=== PATIENT | female | born 1970 | race Caucasian/White ===

== ENCOUNTER 2018-07-01 10:33 | Emergency (ER) | payer MEDICAID ==
[~2018-07-01] VITALS: Ht 160 cm; Wt 107.3 kg
[2018-07-01 10:58] VITALS: Ht 160 cm; Wt 107.3 kg
[2018-07-01 11:38] LABS: UDS - AMPHET POSITIVE QUAL (NEGATIVE); UDS - BARB NEGATIVE QUAL (NEGATIVE); UDS - BENZO NEGATIVE QUAL (NEGATIVE); UDS - COCAINE NEGATIVE QUAL (NEGATIVE); UDS - OPIATE NEGATIVE QUAL (NEGATIVE); UDS - PCP NEGATIVE QUAL (NEGATIVE); UDS - THC NEGATIVE QUAL (NEGATIVE)
[2018-07-01 11:43] LABS: BASOPHILS 0.1 % (0-2); EOSINOPHILS 1.7 % (0-7); HEMATOCRIT 42.6 % (36.0-48.0); HEMOGLOBIN 14.4 g/dL (12-16); IMMATURE GRANULOCYTES 0.3 % (0-5); LYMPHOCYTES 23.8 % (15-50); MCH 32.4 pg (26.0-34.0); MCHC 33.8 g/dL (31.0-37.0); MCV 95.9 fL (80.0-100.0); MEAN PLATELET VOLUME 10.3 fL (7.4-10.4); MONOCYTES 5.6 % (2-11); NEUTROPHILS 68.5 % (40-80); RBC 4.44 10x6/uL (4.00-5.40); RDW 13.7 % (11.5-14.5); WBC 8.7 10x3/uL (4.8-10.8)
[2018-07-01 11:50] LABS: APPEARANCE CLEAR (CLEAR); BACTERIA FEW /hpf (NONE SEEN); BILIRUBIN NEGATIVE (NEGATIVE); COLOR STRAW (YELLOW); EPITHELIAL CELLS OCC /hpf (0-5); GLUCOSE NEGATIVE (NEGATIVE); KETONE NEGATIVE (NEGATIVE); NITRITE NEGATIVE (NEGATIVE); PROTEIN NEGATIVE (NEGATIVE); RED CELLS - URINE OCC /hpf (0-5); SPECIFIC GRAVITY 1.005 (1.005-1.020); UROBILINOGEN NORMAL (NORMAL); WHITE CELLS - URINE RARE /hpf (0-5)
[2018-07-01 11:55] LABS: PLATELET COUNT 222 10x3/uL (130-400)
[2018-07-01 12:00] LABS: ALBUMIN 3.3 g/dL (3.4-5.0); ANION GAP 11.3 mmol/L (8-16); BILIRUBIN - TOTAL 0.22 mg/dL (0.2-1.3); CALCIUM 8.7 mg/dL (8.5-10.1); CARBON DIOXIDE 29.5 mmol/L (21.0-32.0); CREATININE - SERUM 0.9 mg/dL (0.6-1.3); MAGNESIUM - SERUM 1.8 mg/dL (1.8-2.4); POTASSIUM - SERUM 3.8 mmol/L (3.5-5.1); PROTEIN - SERUM 7.9 g/dL (6.4-8.2)
[2018-07-02 00:13] VITALS: BP 154/91
== END 2018-07-02 00:14 ==
LOC: D.ER 10:33
PROVIDERS: Family Medicine
DX: R45.851 Suicidal ideations (principal); I10 Essential (primary) hypertension; Z91.14 Patient's other noncompliance with medication regimen; F19.10 Other psychoactive substance abuse, uncomplicated

== ENCOUNTER 2019-06-23 14:13 | Emergency (ER) | payer MEDICAID ==
[~2019-06-23] VITALS: Ht 160 cm; Wt 113.6 kg
[2019-06-23 14:37] VITALS: Ht 160 cm; Wt 113.6 kg
[2019-06-23] MEDS ORDERED: TAMIFLU75 MG PO (16:08)
[2019-06-23] MEDS ORDERED: LEVAQUIN750 MG PO (16:42)
[2019-06-23 17:12] VITALS: BP 179/95
== END 2019-06-23 17:13 | disposition home or self-care (01) ==
LOC: D.ER 14:13
DX: J11.00 Influenza due to unidentified influenza virus with unspecified type of pneumonia (principal); I10 Essential (primary) hypertension; Z72.0 Tobacco use

== ENCOUNTER 2019-06-25 03:38 | Inpatient (IN) | payer MEDICAID ==
[~2019-06-25] VITALS: Ht 160 cm; Wt 113.6 kg
[~2019-06-25 03:38] MED LIST: LEVAQUIN750 MG PO; TAMIFLU75 MG PO
[2019-06-25 04:31] LABS: BASOPHILS 0.1 % (0-2); EOSINOPHILS 0 % (0-7); HEMATOCRIT 45.5 % (36.0-48.0); IMMATURE GRANULOCYTES 0.4 % (0-5); LYMPHOCYTES 6.9 % (15-50); MCH 31.4 pg (26.0-34.0); MCV 95.4 fL (80.0-100.0); MEAN PLATELET VOLUME 10.4 fL (7.4-10.4); MONOCYTES 3.7 % (2-11); NEUTROPHILS 88.9 % (40-80); PLATELET COUNT 247 10x3/uL (130-400); RBC 4.77 10x6/uL (4.00-5.40); RDW 14.2 % (11.5-14.5); WBC 11.4 10x3/uL (4.8-10.8)
[2019-06-25 04:42] LABS: APTT 29.3 SECONDS (22.8-39.4); INR 0.99 (0.85-1.17)
[2019-06-25 04:45] LABS: CALC OSMOLALITY 281 mosm/kg (275-300); CALCIUM 8.8 mg/dL (8.5-10.1); CARBON DIOXIDE 24.2 mmol/L (21.0-32.0); CHLORIDE - SERUM 102 mmol/L (98-107); CREATININE - SERUM 0.9 mg/dL (0.6-1.3); POTASSIUM - SERUM 3.7 mmol/L (3.5-5.1); SODIUM 138 mmol/L (136-145); UREA NITROGEN 10 mg/dL (7-18); eGFR NON AFRICAN AMERICAN 70 mL/min (90-120)
--- NOTE | 2019-06-25 04:54 | NUR ---
PATIENT IS HERE FOR SHORTNESS OF BREATH, SHE WAS DIAGNOSED WITH PNEUMONIA YESTERDAY. SHE IS NOT SUICIDIAL AT THIS TIME. AND SHE LOVES HER KIDS VERY MUCH. 1-800 NUMBER GIVEN TO HER FOR FUTURE REFERENCE.
[2019-06-25 04:56] LABS: GLUCOSE 219 mg/dL (74-106)
[2019-06-25 05:02] LABS: ALBUMIN 3.2 g/dL (3.4-5.0); ALKALINE PHOSPHATASE 162 U/L (30-120); ALT (SGPT) 135 U/L (10-68); BILIRUBIN - TOTAL 0.21 mg/dL (0.2-1.3); CKMB 5.2 U/L (0.0-3.6); PRO BNP 158 pg/mL (0-125); PROTEIN - SERUM 8.5 g/dL (6.4-8.2); TROPONIN-I < 0.017 ng/mL (0.000-0.060)
[2019-06-25 05:05] LABS: CREATINE KINASE 1319 UL (21-215)
--- NOTE | 2019-06-25 05:17 | NUR ---
PT ASKING STAFF FOR ICE CHIPS. PT INSTRUCTED THAT SHE IS TO STAY NPO PER EDP. LEMON GLYCERIN SWABS PROVIDED. PT VOICED UNDERSTANDING OF EDUCATION.
--- NOTE | 2019-06-25 05:58 | NUR ---
PT AMBULATED INDEPENDENTLY TO RESTROOM. PT REQUESTED SOMETHING FOR PAIN. EDP LASHON NOTIFIED, NO FURTHER ORDERS GIVEN AT THIS TIME.
[2019-06-25] MEDS ORDERED: HYDROCHLOROTHIA25 MG PO (08:09)
[2019-06-25] MEDS ORDERED: XANAX2 MG PO (08:10)
[2019-06-25] MEDS ORDERED: HYDROCODON-ACE1 EA10 PO (08:11)
[2019-06-25] MEDS ORDERED: ASPIRIN81 MG PO (08:12)
[2019-06-25] MEDS ORDERED: METOPROLOL TART25 MG PO (08:12)
[2019-06-25 10:06] VITALS: BP 160/95
--- NOTE | 2019-06-25 13:24 | NUR ---
PT PLACED ON TEMPORARY DROPLET UNTIL FLU TEST RESULTS ARE BACK.
--- NOTE | 2019-06-25 13:28 | NUR ---
ASKED DR. REBOLLAR IF PT CAN HAVE SOMETHING FOR COUGH. HE STATES "I'LL ROUND ON HER SHORTLY." I VERBALIZED UNDERSTANDING.
--- NOTE | 2019-06-25 13:33 | NUR ---
URINE SPECIMEN CUP GIVEN TO PT AND INSTRUCTIONS GIVEN ON HOW TO COLLECT. ALSO STATED TO PT TO USE CALL LIGHT WHEN SHE GETS URINE COLLECTED. PT VERBALIZED UNDERSTANDING.
[2019-06-25 14:01] VITALS: BP 173/88
--- NOTE | 2019-06-25 14:16 | NUR ---
BARRIE TAYLOR ANP THAT PT IS FLU NEGATIVE AND ASKED IF TAMIFLU NEEDS TO BE DC'D. WILL AWAIT FURTHER ORDERS.
--- NOTE | 2019-06-25 14:22 | NUR ---
BRANDON ANAYA STATES TO DC TAMIFLU.
--- NOTE | 2019-06-25 17:31 | NUR ---
RN TO DO ADMISSION ASSESSMENT.
[2019-06-25 18:09] VITALS: BP 153/96
[2019-06-25 18:20] LABS: UDS - AMPHET POSITIVE QUAL (NEGATIVE); UDS - BARB NEGATIVE QUAL (NEGATIVE); UDS - BENZO NEGATIVE QUAL (NEGATIVE); UDS - COCAINE NEGATIVE QUAL (NEGATIVE); UDS - OPIATE NEGATIVE QUAL (NEGATIVE); UDS - PCP NEGATIVE QUAL (NEGATIVE); UDS - THC NEGATIVE QUAL (NEGATIVE)
[2019-06-25 18:51] LABS: BILIRUBIN NEGATIVE (NEGATIVE); GLUCOSE NEGATIVE (NEGATIVE); KETONE NEGATIVE (NEGATIVE); NITRITE NEGATIVE (NEGATIVE); UROBILINOGEN NORMAL (NORMAL)
--- NOTE | 2019-06-25 19:30 | NUR ---
RECEIVED REPORT, WILL ASSUME CARE OF PT, SLEEPING, NO DISTRESS NOTICED AT THIS TIME, BED IS LOW, SRX2, CALL LIGHT IN REACH, WILL CONTINUE PLAN OF CARE
[2019-06-25 20:00] VITALS: BP 171/99
[2019-06-26] VITALS (7 sets, daily range): BP systolic 103–171; BP diastolic 65–105; Ht 160 cm; Wt 113.6 kg
--- NOTE | 2019-06-26 05:00 | NUR ---
I have reviewed this patient and I concur with the Shift Assessment completed by the Licensed Practical Nurse today this shift.
[2019-06-26 06:32] LABS: ALBUMIN 2.8 g/dL (3.4-5.0); ANION GAP 11.3 mmol/L (8-16); BILIRUBIN - TOTAL 0.38 mg/dL (0.2-1.3); CALCIUM 9.1 mg/dL (8.5-10.1); CARBON DIOXIDE 31.1 mmol/L (21.0-32.0); CREATININE - SERUM 0.9 mg/dL (0.6-1.3); POTASSIUM - SERUM 4.4 mmol/L (3.5-5.1); PROTEIN - SERUM 7.8 g/dL (6.4-8.2)
[2019-06-26 06:55] LABS: BASOPHILS 0.1 % (0-2); EOSINOPHILS 0.1 % (0-7); HEMATOCRIT 45.2 % (36.0-48.0); HEMOGLOBIN 14.4 g/dL (12-16); IMMATURE GRANULOCYTES 0.3 % (0-5); LYMPHOCYTES 11.5 % (15-50); MCH 30.6 pg (26.0-34.0); MCHC 31.9 g/dL (31.0-37.0); MEAN PLATELET VOLUME 10.9 fL (7.4-10.4); MONOCYTES 7.6 % (2-11); NEUTROPHILS 80.4 % (40-80); PLATELET COUNT 239 10x3/uL (130-400); RBC 4.71 10x6/uL (4.00-5.40); RDW 14.3 % (11.5-14.5); WBC 14.2 10x3/uL (4.8-10.8)
--- NOTE | 2019-06-26 07:00 | NUR ---
RECEIVED REPORT. ASSUMED CARE OF PATIENT. CALL LIGHT WITHIN REACH. PATIENT LYING IN BED WITH EYES CLOSED. RESP EVEN AND UNLABORED. PATIENT SNORING. O2 VIA NASAL CANULA. LR INFUSING AT 75. PATIENT HAS GOOD PO INTAKE PER NOC SHIFT NURSE GIVING REPORT. NO DISTRESS. WHITE BOARD UPDATED.
--- NOTE | 2019-06-26 08:57 | NUR ---
MEDICATED FOR PAIN AT THIS TIME. PATIENT OUT OF SHOWER AND BACK TO BED. FRESH LINEN PROVIDED. NO DISTRSS. PATIENT RESTING WITH EYES CLOSED AT THIS TIME.
--- NOTE | 2019-06-26 10:06 | NUR ---
MEDICATED FOR ANXIETY. PATIENT CONTINUES TO PULL OXYGEN OFF AND YELLS FOR HELP. PATIENT DIFFICULT TO REASON WITH, STATES SHE DOESN'T TAKE THE OXYGEN OFF. EXPLAINED TO PATIENT THIS APARTMENT LEASING SPECIALIST HAS BEEN IN 3 TIMES JUST TO CHECK THAT OXYGEN IS ON AND EACH TIME HAD TO WAKE THE PATIENT TO PUT OXYGEN BACK ON. PATIENT STATES VERY APPRECIATIVE OF CARE RECEIVED. NO DISTRESS. CALL LIGHT WITHIN REACH. PATIENT DOES NOT FOLLOW DIRECTIONS WELL.
--- NOTE | 2019-06-26 11:26 | NUR ---
RESTING PEACEFULLY, DECREAED ANXIETY NOTED. RESP EVEN AND UNLABORED. NO DISTRESS.
--- NOTE | 2019-06-26 12:34 | NUR ---
RT NOTIFIED OF NEW ORDER FOR ABGs
--- NOTE | 2019-06-26 13:33 | NUR ---
PAGE SENT TO JAVASCRIPT ENGINEER FOR ORDERS. PATIENT WITH GLUCOSE OF 425 AT THIS TIME. AWAITING CALLBACK.
--- NOTE | 2019-06-26 13:37 | NUR ---
NEW ORDERS RECEIVED AND INPUTTED AT THIS TIME.
--- NOTE | 2019-06-26 13:47 | NUR ---
20 UNITS HUMULIN R ADMINISTERED PER SLIDING SCALE FOR BLOOD GLUCOSE OF 425.
--- NOTE | 2019-06-26 13:56 | NUR ---
PAGED TO REPORT ABGs
--- NOTE | 2019-06-26 14:30 | NUR ---
PATIENT HAS CONTINUOUSLY ALL SHIFT PULLED OXYGEN OFF, THROWN BED LINENS IN THE FLOOR, PULLED IV TUBING. PATIENT IS ORIENTED HOWEVER PATIENT IS DIFFICULT TO UNDERSTAND AT TIMES AND EASILY DRIFTS OFF TO SLEEP. PATIENTS CO2 LEVEL IS ELEVATED AT THIS TIME AND AWAITING CALL BACK FROM PULMONOLGY.
--- NOTE | 2019-06-26 14:35 | NUR ---
PATIENT HAD THIS PBX INSTALLER CALL [phone], PHOTOGRAPHER PORTRAIT OF [facility]. PATIENT STATES THIS IS HER FRIEND AND WANTED TO SPEAK WITH HER. THERE WAS NO ANSWER AND THE ANSWERING MACHINE CAME ON AND PATIENT STATES FOR THE FRIEND TO CALL HER BACK, SHE IS IN THE HOSPITAL AND ITS AN EMERGENCY. PATIENT IS BECOMING UNCOOPERATIVE AND CONTINUES TO PULL HER OXYGEN OFF.
--- NOTE | 2019-06-26 14:51 | NUR ---
NO RETURN CALL FROM PULMONOLGY AT THIS TIME. SPOKE WITH PCP, KETURAH AND RECIEVED ORDERS TO REDUCE O2 SAT BY 0.5 LITERS AND REPEAT ABGs IN ONE HOUR. EXPLAINED THAT PATIENT PCO2 IS RISING AND PATIENT IS BECOMING HARD TO HOLD A CONVERSATION WITH. SPOKE WITH LEAD RT AND RT ASSIGNED TO PATIENT REGARDING BIPAP THAT THIS RECRUITER MANAGER IS TRYING TO OBTAIN AN ORDER FOR DUE TO INCREASING PCO2. WAITING FOR FURTHER ORDERS.
--- NOTE | 2019-06-26 15:51 | NUR ---
PATIENT LYING IN BED, OXYGEN OFF, IV DISCONNECTED. PATIENT IS DRESSED LYING IN BED. PATIENT STATES THAT SHE IS GOING HOME, THAT SHE HAS CALLED SOMEONE TO COME AND GET HER. PATIENT DOES NOT HAVE DISCHARGE ORDERS AND AT THIS TIME, IT WOULD NOT BE SAFE FOR PATIENT TO DISCHARGE. APPROACHED RT AGAIN ABOUT BIPAP TO ASSIST WITH LOWERING LEVELS OF PCO2, RT ASHLEY TRYING TO OBTAIN ORDER FROM PRIMARY AT THIS TIME PULMONOLOGY HAS NOT RETURNED CALL.
--- NOTE | 2019-06-26 16:45 | NUR ---
FSBS 327. 12 UNITS HUMULIN R ADMINISTERED PER SLIDING SCALE.
--- NOTE | 2019-06-26 17:13 | NUR ---
MEDICATED FOR PAIN AT THIS TIME. NO DISTRESS.
--- NOTE | 2019-06-26 17:37 | NUR ---
REPEAT ABGs CALLED TO PRIMARY. NEW ORDER RECEIEVED TO PLACE PATIENT ON BIPAP. RT PLACING PATIENT TO BIPAP AT THIS TIME.
--- NOTE | 2019-06-26 17:45 | NUR ---
PATIENT IS NOW ON BIPAP, RESTING WELL. NO DISTRESS. IV FLUIDS INFUSING ORDERED. CALL LIGHT WITHIN REACH.
--- NOTE | 2019-06-26 18:17 | NUR ---
PATIENT PULLING BIPAP OFF. REAPPLIED BIPAP. PATIENT RESTING WELL. NO DISTRESS.
--- NOTE | 2019-06-26 19:28 | NUR ---
RECEIVED REPORT, WILL ASSUME CARE OF PT, SLEEP WITH BIPAP ON, NO DISTRESS NOTICED AT THIS TIME, BED IS LOW, SRX2, CALL LIGHT IN REACH, WILL CONTINUE PLAN OF CARE
--- NOTE | 2019-06-26 20:19 | NUR ---
TRIED TO CALL PT DAUGHTER, WENT TO VOICE MAIL
--- NOTE | 2019-06-26 20:36 | NUR ---
REFUSING BIPAP, WONT KEEP O2 ON, PT SAID SOMEONE IS COMING TO GET HER
--- NOTE | 2019-06-26 20:45 | NUR ---
PT PULLED OUT IV, SAID SHE HAD FRIENDS COMING TO GET HER, TOLD HER THEY NEEDED TO COME TO FLOOR, EXPLAINED TO THEM SHE WOULD HAVE TO LEAVE AMA, THEY THOUGHT SHE WAS DISCHARGED, CALL AMINTA CRUZ, BY THIS TIME, FRIENDS HAD CALMED HER DOWN, SEVERIANO OLIVO RESITED IV TO R.BREAST, PT VISITED WITH FRIENDS FOR A WHILE, THEN WANTS TO SHOWER, SPOT WELDER HELPING, WILL CONTINUE PLAN OF CARE
--- NOTE | 2019-06-26 23:04 | NUR ---
BIPAP IS NOW ON
[2019-06-27] VITALS: BP 163/97
--- NOTE | 2019-06-27 01:43 | NUR ---
I have reviewed this patient and I concur with the Shift Assessment completed by the Licensed Practical Nurse today this shift.
[2019-06-27 04:00] VITALS: BP 150/105
[2019-06-27 06:22] LABS: BASOPHILS 0.2 % (0-2); EOSINOPHILS 0 % (0-7); HEMATOCRIT 45.6 % (36.0-48.0); HEMOGLOBIN 14.6 g/dL (12-16); IMMATURE GRANULOCYTES 0.7 % (0-5); LYMPHOCYTES 13.2 % (15-50); MCH 30.9 pg (26.0-34.0); MCV 96.4 fL (80.0-100.0); MEAN PLATELET VOLUME 11.5 fL (7.4-10.4); MONOCYTES 6.1 % (2-11); NEUTROPHILS 79.8 % (40-80); PLATELET COUNT 234 10x3/uL (130-400); RBC 4.73 10x6/uL (4.00-5.40); RDW 14.1 % (11.5-14.5); WBC 11.3 10x3/uL (4.8-10.8)
--- NOTE | 2019-06-27 07:00 | NUR ---
RECEIVED REPORT. ASSUMED CARE OF PATIENT. PATIENT WITH EYES CLOSED, EASILY AROUSED. RESP EVEN AND UNLABORED. NO BIPAP AT THIS TIME. PATIENT COMPLAINING OF RIB PAIN FROM COUGHING ALL NIGHT. PATIENT WITH MALE VISITOR AT BEDSIDE. PATIENT STATES SHE HAD A ROUGH NIGHT LAST NIGHT. UPON SEEING THIS DIVERSIFIED CROPS FARMER UPDATE THE WHITE BOARD, PATIENT STATES, TODAY IS June, MY PAYDAY, I HAVE TO GET OUT OF HERE AND ASKS WHAT MEDICATION THE MD IS GOING TO GIVE HER. EXPLAINED THERE ARE NO DISCHARGE ORDERS AT THIS TIME. PATIENT REQUESTING PAIN MEDICATION AND LEMON-SENECA-CAYUGA SODA.
[2019-06-27 07:05] LABS: CALCIUM 8.9 mg/dL (8.5-10.1); CARBON DIOXIDE 31.4 mmol/L (21.0-32.0); CHLORIDE - SERUM 97 mmol/L (98-107); CREATININE - SERUM 0.8 mg/dL (0.6-1.3); POTASSIUM - SERUM 4.6 mmol/L (3.5-5.1); SODIUM 136 mmol/L (136-145); eGFR NON AFRICAN AMERICAN 80 mL/min (90-120)
[2019-06-27 07:07] LABS: CALC OSMOLALITY 280 mosm/kg (275-300); GLUCOSE 197 mg/dL (74-106); UREA NITROGEN 24 mg/dL (7-18)
--- NOTE | 2019-06-27 07:41 | NUR ---
MEDICATED FOR PAIN AT THIS TIME. NO DISTRESS. OFF BIPAP. ALERT/ORIENTED.
--- NOTE | 2019-06-27 09:11 | NUR ---
O2 SAT CHECKED ON ROOM AIR WHILE PATIENT RESTING IN BED. PATIENT O2 SAT 81-82% ON ROOM AIR. 02 2L/NC APPLIED AND O2 SAT INCREASED TO 94-95%. PATIENT CONTINUES TO TAKE OXYGEN OFF. PATIENT WITH VISITOR AT BEDSIDE. PATIENT CONSTANTLY PROVIDED WITH QUES AND REMINDERS TO PUT OXYGEN BACK ON.
--- NOTE | 2019-06-27 10:00 | NUR ---
WHILE ENTERING INTO PATIENT ROOM FOR HOURLY CHECKS, PATIENT FOUND TO BE OUT OF BED, NO OXYGEN ON AND IN THE SHOWER. PATIENT BED LINENS WITH MULTIPLE STAINS. MANAGER BABY ENTERED ROOM AND ASKED MANAGER BABY TO BRING CLEAN LINENS SO THIS SENIOR BUSINESS ANALYST CAN CHANGE SHEETS. UPON CHANGING LINEN, THIS SENIOR BUSINESS ANALYST FELT SOMETHING HIT THE SIDE OF HER SHOE THAT HAD FALLEN FROM THE BED. THE MANAGER BABY STANDING ON THE OPPOSITE SIDE OF THE BED ASKS, WHAT WAS THAT THAT FELL. THIS SENIOR BUSINESS ANALYST LOOKED DOWN AND A USED, DIRTY SYRINGE WITH NO NEEDLE ATTACHED LYING ON THE FLOOR. SYRINGE WITH BURNED LOOKING TIP AND SUBSTANCE IN TIP OF SYRINGE PICKED UP FROM FLOOR. ALSO EMPTY CELOPHANE WRAPPER FROM A PACK OF CIGERETTES NOTED TO BE WADDED UP UNDER THE PATIENT PILLOW WITH SOME TYPE OF RESIDUE. THIS SENIOR BUSINESS ANALYST PICKED SYRINGE UP FROM FLOOR WITH GLOVED HANDS AND NOTIFIED CHARGE NURSE, WHILE CLERK OPERATOR CALLED CLERICAL PRODUCTION WORKER TO UNIT. CLERICAL PRODUCTION WORKER TO UNIT AND NOTIFIED. NANCY TAYLOR FOR NOTFIED AND TO UNIT. SECURITY CALLED TO UNIT AND NOTIFIED AND SECURITY TOOK SYRINGE AND CELOPHANE IN BIOHAZARD BAG AND WILL NOTIFY LAW ENFORCEMENT OFFICERS AT THIS TIME. DR. WALLER NOTIFIED AND HE HAS FIRED THE PATIENT FROM HIS PRACTICE. PATIENT NOTIFIED IN PERSON BY TURKISH LINE ATTENDANT THAT SHE HAS THE OPTION TO LEAVE AMA WITH A CONSEQUENCE OR STAY AND CONTINUE TREATMENT FOR CURRENT PNEUMONIA. PATIENT STATED SHE WOULD STAY.
--- NOTE | 2019-06-27 10:10 | NUR ---
PATIENT HAS PULLED OUT HER IV, GOTTEN DRESSED IN HER STREET CLOTHES AND IS LEAVING THE UNIT. THIS FIBER LOCKING SUPERVISOR WAS ABLE TO GET PATIENT BACK TO THE ROOM. PATIENT HAS SIGNED THE AMA FORM. SECURITY TO UNIT AND STATES REGARDLESS, PATIENT WILL NEED TO STAY ON THE UNIT UNTIL SECURITY ARRIVES TO SPEAK WITH THE PATIENT. PATIENT IS SITTING IN ROOM AT THIS TIME.
--- NOTE | 2019-06-27 10:15 | NUR ---
IV CATHETER INSPECTED, IV CATHETER TIP INTACT LYING ON PATIENT BED. IV CATHETER STILL CONNECTED TO IV TUBING AND FLUIDS STILL FLOWING VIA PUMP. NO BLEEDING FROM RIGHT BREAST WHERE PATIENT PULLED IV CATHETER OUT.
--- NOTE | 2019-06-27 10:24 | NUR ---
PATIENT SIGNED AMA FORM AT 1015. PATIENT TOLD SECURITY THAT IT WAS AN INSULIN SYRINGE THAT THE NURSE WAS GIVING HER SHOTS WITH YESTERDAY.
--- NOTE | 2019-06-27 10:33 | NUR ---
PATIENT LEFT UNIT AMA AT THIS TIME. SECURITY TO UNIT AND STATED THAT THE POLICE OFFICERS CAME AND THREW THE SYRINGE IN THE SHARPS CONTAINER AND STATED THEY CANNOT PROVE IT WAS HERS AND THAT THEY WERE NOT GOING TO DO ANYTHING SO PATIENT HAS NOW LEFT THE UNIT. CSTARS REPORT BEING FILED.
--- NOTE | 2019-06-27 10:48 | NUR ---
CSTARS HAS BEEN COMPLETED AND A COPY PLACED IN UNIT MANAGERS BOX AND FAXED TO MEDIA SPECIALIST.
--- NOTE | 2019-06-27 11:50 | NUR ---
PATIENT HAS RETURNED TO THE HOSPITAL AT THIS TIME STATING THAT THE HOSPTIAL STAFF THREW HER OUT AND SHE DOESN'T HAVE A RIDE. SECURITY WAS CALLED TO HANDLE THE SITUATION THUS FAR DUE TO PATIENT LEAVING AMA, PATIENT IS TO LEAVE HOSPTIAL GROUNDS.
--- NOTE | 2019-06-30 08:18 | EC ---
PATIENT:MANFRED NICHOLS DATE OF SERVICE: 06/25/19 SEX: F MEDICAL RECORD: [id number] DATE OF : [birth year] LOCATION:D.M2 D.213 AGE OF PATIENT: 49 ADMISSION DATE: 06/25/19 REFERRING PHYSICIAN: INTERPRETING PHYSICIAN: ADRIENNE GAN MD ECHOCARDIOGRAM REPORT ECHO CHARGES 4 ECHO COMPLETE Date: 06/25/19 CLINICAL DIAGNOSIS: CHF ECHOCARDIOGRAPHIC MEASUREMENTS (adult normal given) AC root (d.<3.7cm) 3.0 cm LV Septum d (<1.2 cm> 1.3 cm Valve Excursion 1.6 cm LV Septum (systole) 1.4 cm Left Atria (s.<4.0cm> 3.5 cm LVPW d(<1.2cm) 1.0 cm RV (d.<2.3cm) 2.7 cm LVPW (sytole) 1.1 cm LV diastole(<5.6CM) 6.0 cm MV E-F(>70mm/sec) cm LV systole 5.0 cm LVOT Diameter 2.2 cm MV exc.(>10mm) cm Est.ejection fraction (50-75%) % DOPPLER: LVIT cm/sec A 115 cm/sec E 65 cm/sec LA cm/sec RVSP 17.9 mmHg LVOT 171 cm/sec AOP1/2T m/s Asc. Ao 185 cm/sec RVOT cm/sec RA cm/sec PA cm/sec AV Gradient Peak 13.7 mmHg AV Mean 7.9 mmHg AV Area 3.8 cm MV Gradient Peak 8.2 mmHg MV Mean 3.2 mmHg MV Area cm COMMENTS: Milk Bottler: Ariana [facility] Questioned Documents Examiner: 3 Dr. Rossi TAPE# PACS Pericardial Effusion N DATE OF SERVICE: Adequate 2D, color flow imaging, spectral Doppler, and M-Mode Borderline LVH. LV internal dimensions are normal. Wall motion is normal. EF is greater than or equal to 55%. Aortic valve is tricuspid. No evidence of stenosis by Doppler interrogation. Left atrium is normal at 3.5 cm. Mitral valve shows no prolapse. Trace MR. Right-sided chambers are grossly normal. Trace TR. ECHOCARDIOGRAM REPORT [id number] MANFRED NICHOLS TRANSINT:[id number] Voice Confirmation ID: [id number] DOCUMENT ID: [id number] ADRIENNE GAN MD at 0818 CC: [id number] DICTATION DATE: 06/26/19 1029 MATERIALS BRANCH CHIEF: 06/26/19 1459 DIS IN 06/27/19 [place] [id number] [place] [id number]
== END 2019-06-27 10:33 | disposition left against medical advice (07) | DRG 193 ==
LOC: D.ER 03:38 → D.M2 05:41
PROVIDERS: Family Medicine; ADMIT Internal Medicine Nephrology; ATTEND Internal Medicine Nephrology
PROC: 5A09457 Assistance with Respiratory Ventilation, 24-96 Consecutive Hours, Continuous Positive Airway Pressure (ICD-10-PCS; principal; 2019-06-26)
DX: J18.9 Pneumonia, unspecified organism (principal); J96.22 Acute and chronic respiratory failure with hypercapnia; F17.213 Nicotine dependence, cigarettes, with withdrawal; J44.1 Chronic obstructive pulmonary disease with (acute) exacerbation; J44.0 Chronic obstructive pulmonary disease with (acute) lower respiratory infection; Z68.41 Body mass index [BMI] 40.0-44.9, adult; M60.9 Myositis, unspecified; I10 Essential (primary) hypertension; F41.8 Other specified anxiety disorders; E66.01 Morbid (severe) obesity due to excess calories

== ENCOUNTER 2020-07-22 11:48 | Inpatient (IN) | payer MEDICAID ==
[~2020-07-22] VITALS: Ht 160 cm; Wt 117.9 kg
[~2020-07-22 11:48] MED LIST changes: +ASPIRIN81 MG PO; +HYDROCHLOROTHIA25 MG PO; +HYDROCODON-ACE1 EA10 PO; +METOPROLOL TART25 MG PO; +XANAX2 MG PO
[2020-07-22 12:28] LABS: BASOPHILS 0.3 % (0-2); HEMATOCRIT 46.4 % (36.0-48.0); HEMOGLOBIN 15.6 g/dL (12-16); IMMATURE GRANULOCYTES 0.3 % (0-5); LYMPHOCYTE ABS# 1.85 10x3/uL (1.18-3.74); LYMPHOCYTES 23.1 % (15-50); MCH 30.7 pg (26.0-34.0); MCHC 33.6 g/dL (31.0-37.0); MCV 91.3 fL (80.0-100.0); MEAN PLATELET VOLUME 11.3 fL (7.4-10.4); MONOCYTES 6.3 % (2-11); NEUTROPHIL ABS# 5.53 10x3/uL (1.56-6.13); PLATELET COUNT 233 10x3/uL (130-400); RBC 5.08 10x6/uL (4.00-5.40); RDW 13.1 % (11.5-14.5)
[2020-07-22 12:37] LABS: APTT 26.6 SECONDS (22.8-39.4); INR 1.14 (0.85-1.17); PROTIME 13.5 SECONDS (11.6-15.0)
[2020-07-22 12:38] LABS: D-DIMER-QUANTITATIVE < 0.27 ug/mLFEU (0.20-0.54)
[2020-07-22 12:53] LABS: ALBUMIN 2.7 g/dL (3.4-5.0); ALKALINE PHOSPHATASE 212 U/L (30-120); ALT (SGPT) 243 U/L (10-68); BILIRUBIN - TOTAL 0.74 mg/dL (0.2-1.3); CALCIUM 8.5 mg/dL (8.5-10.1); CARBON DIOXIDE 27.9 mmol/L (21.0-32.0); CHLORIDE - SERUM 95 mmol/L (98-107); CKMB 1.9 U/L (0.0-3.6); CREATINE KINASE 130 UL (21-215); CREATININE - SERUM 1.1 mg/dL (0.6-1.3); POTASSIUM - SERUM 4.1 mmol/L (3.5-5.1); PRO BNP 124 pg/mL (0-125); PROTEIN - SERUM 8.2 g/dL (6.4-8.2); SODIUM 131 mmol/L (136-145); UREA NITROGEN 15 mg/dL (7-18); eGFR NON AFRICAN AMERICAN 55 mL/min (90-120)
[2020-07-22 12:57] LABS: CALC OSMOLALITY 290 mosm/kg (275-300); GLUCOSE 580 mg/dL (74-106); TROPONIN-I < 0.017 ng/mL (0.000-0.060)
[2020-07-22] MEDS ORDERED: GLUCOPHAGE1000 MG PO (13:01)
[2020-07-22 14:13] LABS: NITRITE NEGATIVE (NEGATIVE)
[2020-07-22 14:14] LABS: BILIRUBIN NEGATIVE (NEGATIVE); KETONE NEGATIVE (NEGATIVE); UROBILINOGEN NORMAL mg/dL (< 2)
[2020-07-22 14:18] LABS: BACTERIA MODERATE HPF (NONE SEEN); SQUAMOUS EPITHELIAL 0-5 HPF (0-4); WHITE CELLS - URINE 4 HPF (0-4)
[2020-07-22 14:21] LABS: UDS - AMPHET POSITIVE QUAL (NEGATIVE); UDS - BARB NEGATIVE QUAL (NEGATIVE); UDS - BENZO NEGATIVE QUAL (NEGATIVE); UDS - COCAINE NEGATIVE QUAL (NEGATIVE); UDS - OPIATE NEGATIVE QUAL (NEGATIVE); UDS - PCP NEGATIVE QUAL (NEGATIVE); UDS - THC NEGATIVE QUAL (NEGATIVE)
--- NOTE | 2020-07-22 14:54 | NUR ---
ABDOMEN ULTRASOUND SCHEDULED FOR 07/23. TOLD NURSE DEBORA TO MAKE PT NPO AFTER MIDNIGHT FOR ULTRASOUND
--- NOTE | 2020-07-22 15:23 | NUR ---
RECIEVED REPORT FROM PALLAVI UMAÑA IN ER. IS GOING TO GIVE SCHEDULED MEDICAITON AND PERFORM RAPID COVID TESTING BEFORE TRANSPORTING PT TO FLOOR.
[2020-07-22 16:19] LABS: SARS-CoV-2 ANTIGEN NEGATIVE- SARS-COV-2 (NEGATIVE)
[2020-07-22 17:48] VITALS: BP 185/98
[2020-07-22 21:51] VITALS: BP 194/96
[2020-07-23 01:15] VITALS: BP 181/101
[2020-07-23 04:35] VITALS: BP 195/97
[2020-07-23 05:23] LABS: BASOPHILS 0.3 % (0-2); EOSINOPHILS 1.8 % (0-7); HEMATOCRIT 45.2 % (36.0-48.0); HEMOGLOBIN 15.2 g/dL (12-16); IMMATURE GRANULOCYTES 0.3 % (0-5); LYMPHOCYTE ABS# 2.59 10x3/uL (1.18-3.74); LYMPHOCYTES 32.5 % (15-50); MCH 31.3 pg (26.0-34.0); MCHC 33.6 g/dL (31.0-37.0); MEAN PLATELET VOLUME 11.6 fL (7.4-10.4); MONOCYTES 7.2 % (2-11); NEUTROPHIL ABS# 4.63 10x3/uL (1.56-6.13); NEUTROPHILS 57.9 % (40-80); PLATELET COUNT 210 10x3/uL (130-400); RBC 4.86 10x6/uL (4.00-5.40); RDW 13.3 % (11.5-14.5)
[2020-07-23 05:46] LABS: ALBUMIN 2.5 g/dL (3.4-5.0); ANION GAP 10.3 mmol/L (8-16); BILIRUBIN - TOTAL 0.54 mg/dL (0.2-1.3); CALCIUM 8.6 mg/dL (8.5-10.1); CARBON DIOXIDE 28.8 mmol/L (21.0-32.0); CREATININE - SERUM 0.9 mg/dL (0.6-1.3); POTASSIUM - SERUM 4.1 mmol/L (3.5-5.1); PROTEIN - SERUM 7.5 g/dL (6.4-8.2)
--- NOTE | 2020-07-23 07:20 | NUR ---
RECIEVE REPORT. ALERT AND ORIENTED X4. UA COLLECTED AND TAKEN TO LAB. REQUEST ANXIETY AND PAIN MEDICATION. ADMINISTER ANXIETY MEDICATION AND PAIN MEDICATION ORDERED. DENIES ANY OTHER NEEDS. CONTINUE PLAN OF CARE AND SAFETY PRECAUTIONS.
[2020-07-23 09:00] VITALS: BP 180/114
[2020-07-23 15:54] VITALS: BP 154/83
[2020-07-23 19:00] VITALS: BP 162/81
--- NOTE | 2020-07-23 19:20 | NUR ---
REPORT RECEIVED, PT CARE ASSUMED. PT LYING FLAT IN BED, RESTING WITH EYES CLOSED, NAD OBSERVED, AROUSES EASILY TO VOICE. DENIES ANY NEEDS AT THIS TIME. BED LOWEST, SRX1, CL WITHIN REACH. CPOC.
[2020-07-24] VITALS: BP 150/84
[2020-07-24 01:52] VITALS: BP 195/97; BMI 46.1
[2020-07-24 04:00] VITALS: BP 156/90
--- NOTE | 2020-07-24 07:20 | NUR ---
RECIEVE REPORT. RESTING IN BED WITH EYES CLOSED. NO SIGNS OF DISTRESS. CONTINUE PLAN OF CARE AND SAFETY PRECAUTIONS.
[2020-07-24 07:23] VITALS: BP 126/67
[2020-07-24 10:43] LABS: BASOPHILS 0.2 % (0-2); EOSINOPHILS 1.6 % (0-7); HEMATOCRIT 43.7 % (36.0-48.0); IMMATURE GRANULOCYTES 0.3 % (0-5); LYMPHOCYTE ABS# 2.31 10x3/uL (1.18-3.74); LYMPHOCYTES 24.7 % (15-50); MCH 30.3 pg (26.0-34.0); MCV 94.6 fL (80.0-100.0); MEAN PLATELET VOLUME 11.3 fL (7.4-10.4); MONOCYTES 7.2 % (2-11); NEUTROPHIL ABS# 6.18 10x3/uL (1.56-6.13); PLATELET COUNT 229 10x3/uL (130-400); RBC 4.62 10x6/uL (4.00-5.40); RDW 13.2 % (11.5-14.5); WBC 9.4 10x3/uL (4.8-10.8)
[2020-07-24 11:00] VITALS: BP 121/80
[2020-07-24 11:06] LABS: ALBUMIN 2.4 g/dL (3.4-5.0); ANION GAP 9.4 mmol/L (8-16); BILIRUBIN - TOTAL 0.39 mg/dL (0.2-1.3); CALCIUM 8.5 mg/dL (8.5-10.1); CARBON DIOXIDE 26.7 mmol/L (21.0-32.0); CREATININE - SERUM 0.9 mg/dL (0.6-1.3); POTASSIUM - SERUM 4.1 mmol/L (3.5-5.1); PROTEIN - SERUM 7.2 g/dL (6.4-8.2)
[2020-07-24 12:34] VITALS: Ht 160 cm; Wt 117.9 kg
[2020-07-24 21:21] VITALS: BP 172/96
[2020-07-25 05:31] LABS: BASOPHILS 0.2 % (0-2); EOSINOPHILS 1.4 % (0-7); HEMATOCRIT 45.9 % (36.0-48.0); HEMOGLOBIN 14.8 g/dL (12-16); IMMATURE GRANULOCYTES 0.4 % (0-5); LYMPHOCYTE ABS# 2.39 10x3/uL (1.18-3.74); LYMPHOCYTES 25.8 % (15-50); MCH 30.3 pg (26.0-34.0); MCHC 32.2 g/dL (31.0-37.0); MCV 93.9 fL (80.0-100.0); MEAN PLATELET VOLUME 11.2 fL (7.4-10.4); MONOCYTES 5.9 % (2-11); NEUTROPHIL ABS# 6.13 10x3/uL (1.56-6.13); NEUTROPHILS 66.3 % (40-80); PLATELET COUNT 227 10x3/uL (130-400); RBC 4.89 10x6/uL (4.00-5.40); RDW 13.1 % (11.5-14.5); WBC 9.3 10x3/uL (4.8-10.8)
[2020-07-25 05:42] LABS: ALBUMIN 2.5 g/dL (3.4-5.0); ANION GAP 9.8 mmol/L (8-16); BILIRUBIN - TOTAL 0.42 mg/dL (0.2-1.3); CALCIUM 8.7 mg/dL (8.5-10.1); CARBON DIOXIDE 26.2 mmol/L (21.0-32.0); CREATININE - SERUM 0.9 mg/dL (0.6-1.3); MAGNESIUM - SERUM 1.7 mg/dL (1.8-2.4); PROTEIN - SERUM 7.7 g/dL (6.4-8.2)
--- NOTE | 2020-07-25 07:20 | NUR ---
RECIEVE REPORT. RESTING IN BED WITH EYES CLOSED. NO SIGNS OF DISTRESS. CONTINUE PLAN OF CARE AND SAFETY PRECAUTIONS.
[2020-07-25 08:00] VITALS: BP 142/76
[2020-07-25 10:11] LABS: HEPATITIS C ANTIBODY >11.0 S/CO RAT (0.0-0.9)
[2020-07-25 11:00] VITALS: BP 122/72
[2020-07-25] MEDS ORDERED: MACROBID100 MG PO (13:37)
[2020-07-25] MEDS ORDERED: NORVASC10 MG PO (13:38)
[2020-07-25] MEDS ORDERED: PROAIR HFA8.5 G1 INH (13:38)
[2020-07-25] MEDS ORDERED: FLORAJEN3 CAPS460 MG PO (13:39)
[2020-07-25] MEDS ORDERED: MIRALAX17 GM PO (13:39)
[2020-07-25] MEDS ORDERED: MUCINEX600 MG PO (13:39)
[2020-07-25] MEDS ORDERED: LANTUS INS100 UNITS/ SC (13:40)
--- NOTE | 2020-07-25 16:49 | NUR ---
ALERT AND ORIENTED X4. SITTING UP ON BED. DC RT FA IV TIP INTACT. DISCHARGE INSTRUCTIONS GIVEN VERBALLY AND WRITTEN. UNABLE TO SIGN DISCHARGE PAPERS DUE TO COVID ISOLATION. GLUCOMETER AND SUPPLIES CALLED INTO [facility]. SPOKE WITH DINESH. ESCOR TO RIDE VIA WHEELCHAIR. REMAINS FREE FROM INJURY.
--- NOTE | 2020-07-25 18:29 | MORECARE ---
CASE MANAGEMENT DISCHARGE SUMMARY PATIENT: MANFRED NICHOLS UNIT: [id number] ADM DATE: 07/22/20 AGE: 50 : 68 SEX: F ROOM/BED: D.2103 AUTHOR: REX,DOC PHYSICIAN: REFERRING PHYSICIAN: GILDA MIGUEL DO DATE OF SERVICE: 07/25/20 Case Management Discharge Planning Summary CT Patient Name: MANFRED NICHOLS Attending MD : GILDA BANKS Medical Record: [id number] Encounter : [id number] Facility : [facility] Admission Date : 113:30 Center Discharge Date : 07/25/[address] [place] [address] Date of : DC Plan ID : [id number] Age/Sex/Martia : 50/ F/S Printed on : 07/25/20 18:27 CT DCP Review Details Anticipated D/C: Expected LOS : Case Status : INITIATED - Initial Reviewe: [id number] Racheal Gunn Initial Review: 07/22/2020 Planned Disposi: - Final Discharge: - Final Reviewer : : Final Review : DCP [facility] Questions [facility] MANFRED NICHOLS MR#: [id number] /Age/Sex/Uwzabu5-Dhy-80 /50/F /S Attending Physician Name: SUNG MIGUEL [id number] Patient Account:[id number] [facility] Page -1 of 1 All edits/amendments must be made on the electronic document DICTATION DATE: 07/25/201826 BOX TENDER: DM 07/25/201826 RPT#: [id number] DC DATE:07/25/20 STATUS: DIS IN [address] [address] END OF REPORT
--- NOTE | 2020-07-25 18:44 | MORECARE ---
CASE MANAGEMENT DISCHARGE SUMMARY PATIENT: MANFRED NICHOLS UNIT: [id number] ADM DATE: 07/22/20 AGE: 50 : 68 SEX: F ROOM/BED: D.2103 AUTHOR: REX,DOC PHYSICIAN: REFERRING PHYSICIAN: GILDA MIGUEL DO DATE OF SERVICE: 07/25/20 Case Management Discharge Planning Summary CT Patient Name: MANFRED NICHOLS Attending MD : GILDA BANKS Medical Record: [id number] Encounter : [id number] Facility : [id number] - [facility] Admission Date : 113:30 Center Discharge Date : 07/25/[address] [place] [address] Date of : DC Plan ID : [id number] Age/Sex/Martia : 50/ F/S Printed on : 07/25/20 18:42 CT DCP Review Details Anticipated D/C: Expected LOS : Case Status : INITIATED - Initial Reviewe: [id number] - Laxmi Gunn Initial Review: 07/22/2020 Planned Disposi: - Final Discharge: - Final Reviewer : : Final Review : Comments CT Entered Date Type Reviewer 07/25/20 18:25 CT Discharge Planning Laxmi Gunn Comment CM attempted to call into patients room several times unable to see d/t isolation protocol. CM wasn't able to speak with patient prior to discharge. Patient's nurse did call in a glucometer and testing supplies to patient's pharmacy. DCP [employer] Questions [employer] [facility] MANFRED NICHOLS MR#: [id number] /Age/Sex/Rrkzmb5-Zws-47 /50/F /S Attending Physician Name: SUNG MIGUEL [id number] Patient Account:[id number] [facility] Page -1 of 1 All edits/amendments must be made on the electronic document DICTATION DATE: 07/25/201841 ELECTRO MECHANICAL TECHNOLOGIST: CLAUDE 07/25/201841 RPT#: [id number] DC DATE:07/25/20 STATUS: DIS IN [address] [address] END OF REPORT
--- NOTE | 2020-07-25 19:20 | MORECARE ---
CASE MANAGEMENT DISCHARGE SUMMARY PATIENT: MANFRED NICHOLS UNIT: [id number] ADM DATE: 07/22/20 AGE: 50 : 68 SEX: F ROOM/BED: D.2103 AUTHOR: REX,DOC PHYSICIAN: REFERRING PHYSICIAN: GILDA MIGUEL DO DATE OF SERVICE: 07/25/20 Case Management Discharge Planning Summary CT Patient Name: MANFRED NICHOLS Attending MD : GILDA BANKS Medical Record: [id number] Encounter : [id number] Facility : [id number] - [facility] Admission Date : 113:30 Center Discharge Date : 07/25/2020 [facility] [place] [address] Date of : DC Plan ID : [id number] Age/Sex/Martia : 50/ F/S Printed on : 07/25/20 19:19 CT DCP Review Details Anticipated D/C: Expected LOS : Case Status : INITIATED - Initial Reviewe: [id number] - Laxmi Gunn Initial Review: 07/22/2020 Planned Disposi: - Final Discharge: - Final Reviewer : : Final Review : Comments CT Entered Date Type Reviewer 07/25/20 18:25 CT Discharge Planning Laxmi Gunn Comment CM attempted to call into patients room several times unable to see d/t isolation protocol. CM wasn't able to speak with patient prior to discharge. Patient's nurse did call in a glucometer and testing supplies to patient's pharmacy. DCP [employer] Questions [employer] [facility] MANFRED NICHOLS MR#: [id number] /Age/Sex/Lqrtvm9-Trr-15 /50/F /S Attending Physician Name: SUNG MIGUEL [id number] Patient Account:[id number] [facility] Page -1 of 1 All edits/amendments must be made on the electronic document DICTATION DATE: 07/25/201918 SALES PROJECT ENGINEER: CLAUDE 07/25/201918 RPT#: [id number] DC DATE:07/25/20 STATUS: DIS IN [facility] [address] [place] [address] END OF REPORT
== END 2020-07-25 17:01 | disposition home or self-care (01) | DRG 189 ==
LOC: D.ER 11:48 → D.MS 13:30 → D.M2 13:30 → D.EDHOLD 16:07 → D.M2 16:39
PROVIDERS: Emergency Medicine; Family Medicine; ADMIT Family Medicine; ATTEND Family Medicine
DX: J96.01 Acute respiratory failure with hypoxia (principal); J44.1 Chronic obstructive pulmonary disease with (acute) exacerbation; E87.1 Hypo-osmolality and hyponatremia; Z68.42 Body mass index [BMI] 45.0-49.9, adult; N39.0 Urinary tract infection, site not specified; Z20.822 Contact with and (suspected) exposure to COVID-19; E11.65 Type 2 diabetes mellitus with hyperglycemia; K59.00 Constipation, unspecified; F41.8 Other specified anxiety disorders; I10 Essential (primary) hypertension; E66.9 Obesity, unspecified; R74.01 Elevation of levels of liver transaminase levels; F15.10 Other stimulant abuse, uncomplicated; B96.20 Unspecified Escherichia coli [E. coli] as the cause of diseases classified elsewhere; Z72.0 Tobacco use

== ENCOUNTER 2020-08-19 10:52 | Inpatient (IN) | payer MEDICAID ==
[~2020-08-19] VITALS: Ht 160 cm; Wt 122.7 kg
[~2020-08-19 10:52] MED LIST changes: +FLORAJEN3 CAPS460 MG PO; +GLUCOPHAGE1000 MG PO; +LANTUS INS100 UNITS/ SC; +MACROBID100 MG PO; +MIRALAX17 GM PO; +MUCINEX600 MG PO; +NORVASC10 MG PO; +PROAIR HFA8.5 G1 INH
[2020-08-19 11:03] VITALS: Ht 160 cm; Wt 122.7 kg
[2020-08-19] MEDS ORDERED: GLUCOPHAGE1000 MG PO (11:38)
[2020-08-19] MEDS ORDERED: LISINOPRIL20 MG PO (11:38)
[2020-08-19] MEDS ORDERED: NORVASC10 MG PO (11:38)
[2020-08-19 11:49] LABS: BASOPHILS 0.2 % (0-2); EOSINOPHILS 0.6 % (0-7); HEMATOCRIT 43.2 % (36.0-48.0); HEMOGLOBIN 14.9 g/dL (12-16); IMMATURE GRANULOCYTES 0.3 % (0-5); LYMPHOCYTE ABS# 2.53 10x3/uL (1.18-3.74); LYMPHOCYTES 24.8 % (15-50); MCH 31.1 pg (26.0-34.0); MCHC 34.5 g/dL (31.0-37.0); MCV 90.2 fL (80.0-100.0); MEAN PLATELET VOLUME 11.6 fL (7.4-10.4); MONOCYTES 6.2 % (2-11); NEUTROPHIL ABS# 6.94 10x3/uL (1.56-6.13); NEUTROPHILS 67.9 % (40-80); PLATELET COUNT 199 10x3/uL (130-400); RBC 4.79 10x6/uL (4.00-5.40); RDW 13.2 % (11.5-14.5); WBC 10.2 10x3/uL (4.8-10.8)
[2020-08-19 11:53] LABS: BILIRUBIN NEGATIVE (NEGATIVE); KETONE NEGATIVE (NEGATIVE); NITRITE NEGATIVE (NEGATIVE); UROBILINOGEN NORMAL mg/dL (< 2)
[2020-08-19 11:54] LABS: BACTERIA MANY HPF (NONE SEEN); SQUAMOUS EPITHELIAL 0-5 HPF (0-4); WHITE CELLS - URINE 0-5 HPF (0-4)
[2020-08-19 11:59] LABS: CALCIUM 8.9 mg/dL (8.5-10.1); CHLORIDE - SERUM 96 mmol/L (98-107); POTASSIUM - SERUM 3.2 mmol/L (3.5-5.1); SODIUM 134 mmol/L (136-145); UREA NITROGEN 11 mg/dL (7-18); eGFR NON AFRICAN AMERICAN 62 mL/min (90-120)
[2020-08-19 12:03] LABS: UDS - AMPHET POSITIVE QUAL (NEGATIVE); UDS - BARB NEGATIVE QUAL (NEGATIVE); UDS - BENZO NEGATIVE QUAL (NEGATIVE); UDS - COCAINE NEGATIVE QUAL (NEGATIVE); UDS - OPIATE NEGATIVE QUAL (NEGATIVE); UDS - PCP NEGATIVE QUAL (NEGATIVE); UDS - THC NEGATIVE QUAL (NEGATIVE)
[2020-08-19 12:05] LABS: ALBUMIN 3.1 g/dL (3.4-5.0); ALKALINE PHOSPHATASE 216 U/L (30-120); ALT (SGPT) 235 U/L (10-68); MAGNESIUM - SERUM 1.5 mg/dL (1.8-2.4); PROTEIN - SERUM 8.4 g/dL (6.4-8.2)
[2020-08-19 12:16] LABS: ACETAMINOPHEN < 10.0 ug/mL (10.0-30.0); CALC OSMOLALITY 282 mosm/kg (275-300); GLUCOSE 379 mg/dL (74-106)
[2020-08-19 12:17] VITALS: BP 211/108
--- NOTE | 2020-08-19 12:19 | NUR ---
DR. CHARLES NOTIFIED AND SITTER ORDERED. SITTER AT BEDSIDE. NOTIFIED CHARGE NURSE AND ATTENDING IN REGARDS TO ASSESSMENT FINDINGS. RESOURCES GIVEN TO PATIENT AND SAFETY PLAN INITIATED.
[2020-08-19 12:52] VITALS: BP 182/75
--- NOTE | 2020-08-19 13:17 | NUR ---
BLOOD SUGAR 382
[2020-08-19 13:18] VITALS: BP 183/86
--- NOTE | 2020-08-19 14:43 | NUR ---
DR. DIOR IN TO SEE PT.
[2020-08-19 15:22] VITALS: BP 142/87
--- NOTE | 2020-08-19 15:23 | NUR ---
BLOOD SUGAR 239, PT STATES SHE IS HUNGRY.
[2020-08-19 16:39] VITALS: BP 138/86
--- NOTE | 2020-08-19 17:29 | NUR ---
PT ATE 100% OF DIET, RESTING IN ROOM WITH EYES CLOSED.
[2020-08-19 19:09] VITALS: BP 130/83
[2020-08-20 06:44] LABS: BASOPHILS 0.3 % (0-2); EOSINOPHILS 2.8 % (0-7); HEMATOCRIT 40.8 % (36.0-48.0); HEMOGLOBIN 13.3 g/dL (12-16); IMMATURE GRANULOCYTES 0.3 % (0-5); LYMPHOCYTES 38.9 % (15-50); MCH 30.4 pg (26.0-34.0); MCHC 32.6 g/dL (31.0-37.0); MEAN PLATELET VOLUME 11.4 fL (7.4-10.4); MONOCYTES 7.6 % (2-11); NEUTROPHIL ABS# 3.09 10x3/uL (1.56-6.13); NEUTROPHILS 50.1 % (40-80); PLATELET COUNT 185 10x3/uL (130-400); RBC 4.38 10x6/uL (4.00-5.40); RDW 13.6 % (11.5-14.5)
[2020-08-20 06:47] LABS: MCV 93.2 fL (80.0-100.0); WBC 6.2 10x3/uL (4.8-10.8)
[2020-08-20 06:55] LABS: BILIRUBIN - TOTAL 0.41 mg/dL (0.2-1.3); CARBON DIOXIDE 27.3 mmol/L (21.0-32.0); CHOL - HDL RATIO 4.4 ratio (2.3-4.1); CREATININE - SERUM 0.9 mg/dL (0.6-1.3); LDL-HDL RATIO 2.6 ratio (1.5-3.5); PROTEIN - SERUM 6.7 g/dL (6.4-8.2)
[2020-08-20 06:59] LABS: ALBUMIN 2.3 g/dL (3.4-5.0); ANION GAP 10.7 mmol/L (8-16)
--- NOTE | 2020-08-20 07:38 | NUR ---
PT AROUSED EASILY THIS MORNING, BLOOD SUGAR 311 PT RECEIVED 12 UNITS OF REG. INSULIN SQ. DENIES ANY PROBLEMS THIS MORNING. DOES REQUEST SOMETHING FOR HER NERVES AND PAIN. EXPLAIN SHE HAD SOMETHING AT 4AM AND SHE HAS TO WAIT 6 HOURS SHE VOICED UNDERSTANDING.
--- NOTE | 2020-08-20 07:49 | HP ---
PATIENT: MANFRED NICHOLS MEDICAL RECORD: [id number] ACCOUNT: [id number] LOCATION:[facility].E18- : 68 ADMISSION DATE: 08/19/20 PCP: No PCP HISTORY AND PHYSICAL EXAMINATION REASON FOR ADMISSION: Feeling bad with negative thoughts. HISTORY OF PRESENT ILLNESS: The patient is a 50-year-old female who has had multiple admissions to this hospital for noncompliance, on antihypertensives and diabetic meds. She has also been hospitalized for depression. She was discharged from Dr. Dyson service on 07/25/2020 for admission for uncontrolled hypertension, Escherichia coli urinary tract infection and diabetes mellitus. The patient also had tested positive for meth at that time. She states she has been feeling well and could not afford to get her medications, though she says she does have Medicaid. She lives alone and says she has been having negative thoughts recently. She says she sees people in her room at times, who have negative thoughts to say about her and she feels afraid because of them. She says she has been suicidal in the past and feels like she is heading that way. She has been hospitalized at [facility] on several occasions and when asked which psychiatrist she is seeing she dates back to Dr. Anderson, Dr. Garza and then Dr. Wyman. She says she was hospitalized at [facility] maybe 3 months ago for suicidal attempt with overdose. She has 2 children who [place] and she sees very little. She smokes a pack of cigarettes a day despite having COPD. Upon her last discharge, she was discharged on hydrochlorothiazide 25 mg daily, metoprolol 25 mg daily and amlodipine 10 mg daily for her blood pressure, but she did not fill these. She was also on Lantus insulin 10 units subQ at bedtime. PAST MEDICAL HISTORY: COPD with nicotine addiction current, morbid obesity, history of bipolar illness, chronic depression, disabled due to chronic low back pain, history of pneumonia, GERD, endometriosis, suicide attempt with suicidal ideation, type 2 diabetes mellitus, history of STDs. PAST SURGICAL HISTORY: , cholecystectomy, tubal ligation, carpal tunnel surgery on bilateral wrists. ALLERGIES: TORADOL. FAMILY HISTORY: States her parents are . Mother had cardiovascular disease. Father with lung disease, hypertension. She has 2 natural children, daughter and son, she thinks are in good health. SOCIAL HISTORY: Lives by herself. She smoked since she was 16 a pack of cigarettes a day, uses alcohol and occasionally uses methamphetamines. She had Adderall in the past she said for inability to stay on track. CURRENT MEDICATIONS: To which she is noncompliant are hydrochlorothiazide 25 mg b.i.d., Xanax 2 mg three times daily as needed for anxiety, [place] 10/325 one every 6 hours for severe pain, metoprolol tartrate 25 mg daily, aspirin 81 mg daily, metformin 1000 mg b.i.d., Norvasc 10 mg a day, Mucinex 600 mg b.i.d., Shantell capsule 1 daily, MiraLax 17 grams p.o. b.i.d., Lantus insulin 10 units subQ at bedtime, albuterol ProAir HFA 2 puffs every 6 hours as needed for shortness of breath, nitrofurantoin, Macrobid b.i.d. for 7 days. REVIEW OF SYSTEMS: HISTORY AND PHYSICAL [id number] MANFRED NICHOLS GENERAL: She is chronically fatigued and generally does not feel well. She has had headaches for the last few days because of her blood pressure she is feeling was elevated. She has had increased weight gain. No recent fever. HEENT: No recent visual change, sinus congestion, sore throat, but occasional headache. RESPIRATORY: She has intermittent cough that is nonproductive. She is short of breath if she walks a distance. CARDIOVASCULAR: Denies chest pain, palpitations, PND or orthopnea, but has chronic lower edema in her ankles and feet she thinks due to her weight. GASTROINTESTINAL: No nausea, vomiting, change in stools or blood per rectum. GENITOURINARY: No incontinence. GYNECOLOGICAL: No recent vaginal bleeding. She is 2 post tubal ligation. MUSCULOSKELETAL: Has chronic lumbago that radiates into her right buttocks, but not down her leg. PSYCHIATRIC: Admits to depression. She has been having "bad thoughts" recently due to her social and health situation, which is declining. She says she occasionally sees people in the room that are there and hears voices telling her negative things. INTEGUMENT: No recent rash or itching. PHYSICAL EXAMINATION: VITAL SIGNS: Blood pressure 211/108, respirations of 18, temperature of 98 degrees Fahrenheit, pulse 92, sats 98% on room air. GENERAL: The patient is alert, but disoriented to place. She answers questions fairly appropriately, but it is hard to understand. HEENT: Eyes are clear, pupils are reactive, but her conjunctivae is injected, but nonicteric. Oropharynx shows dry mucous membranes and partially edentulous. NECK: Supple, without bruits, jugular venous distention, or masses. CHEST: Distant breath sounds without wheeze or rales. HEART: Tachycardic without murmur. ABDOMEN: Morbidly obese, soft with healed surgical laparoscopic scars. PELVIC: Deferred. EXTREMITIES: She has 1+ bipedal and pretibial edema to the knees bilaterally. INTEGUMENT: She has first-degree sunburn of her upper chest and back. No lesions were appreciated. No ulcers. PSYCHIATRIC: She admits to negative thoughts, anxiety, feeling something bad was going to happen to her and admits to hearing voices and sometimes seeing people around that are not there. She has had suicidal thoughts, but says she would take pills if she were to attempt suicide again. LABORATORY AND DIAGNOSTIC DATA: Her white count is 10,000, H&H of 14.9 and 43.2. Chemistry shows a potassium of 3.2, sodium of 134, BUN of 11, creatinine of 1, glucose of 380, bilirubin of 0.6. AST and ALT of 156 and 235 respectively. Alkaline phosphatase is 216. Urine drug screen was positive for amphetamines, which she denies using currently. Alcohol is 0. Salicylates are 1.7, which is low. Acetaminophen was less at 10. No x-rays have been performed in the ED currently. Her abdominal ultrasound from July 23 of this year, shows increased liver echogenicity suggesting fatty infiltration post-cholecystectomy. Echocardiogram in June of this year showed an EF of 55%. ASSESSMENT: 1. Uncontrolled essential hypertension with noncompliance. 2. Chronic obstructive pulmonary disease, currently asymptomatic. 3. Depression [id number] with history of bipolar illness and suicidal HISTORY AND PHYSICAL [id number] MANFRED NICHOLS ideation and hallucinosis. 4. Morbid obesity. 5. Recent Escherichia coli urinary tract infection, partially treated. 6. Diabetes mellitus type 2, noncompliant and uncontrolled. PLAN: The patient is in ED currently, will need psych clearance concerning suicidal thoughts. We will place on IV fluid, sliding scale insulin to help with her hyperglycemia, aggressively treat her hypertensive. She will need strict followup outpatient and case management will be involved from day 1 to assist in her medication compliance, obtaining medications and follow up at [facility]. TRANSINT:[id number] Voice Confirmation ID: [id number] DOCUMENT ID: [id number] JASVIR DIOR MD at 0749 CC: [id number] DICTATION DATE: 08/19/20 151 ELECTROPHYSIOLOGIST: 08/19/20 1640 ADM IN [place] [id number] [place] [id number]
[2020-08-20 08:57] VITALS: BP 161/86
--- NOTE | 2020-08-20 09:09 | NUR ---
DR DIOR HERE TO SEE PT. ORDERS RECEIVED AND CARRIED OUT.
--- NOTE | 2020-08-20 09:23 | NUR ---
PT C/O ITCHING, ATARAX GIVEN. PER ORDERS. ALSO C/O PAIN AND ANXIETY.
--- NOTE | 2020-08-20 10:02 | NUR ---
PAIN MED GIVEN ALONG WITH ANXIETY MED. PT UP TO RESTROOM. IV SITE PATENT. NS INFUSING .SITTER AT DOOR WAY
--- NOTE | 2020-08-20 10:19 | NUR ---
ANETTE HERE TALKING TO PT.
--- NOTE | 2020-08-20 16:48 | MORECARE ---
CASE MANAGEMENT DISCHARGE SUMMARY PATIENT: MANFRED NICHOLS UNIT: [id number] ADM DATE: 08/20/20 AGE: 50 : 69 SEX: F ROOM/BED: D.E18 AUTHOR: REX,DOC PHYSICIAN: REFERRING PHYSICIAN: JASVIR DIOR MD DATE OF SERVICE: 08/20/20 Case Management Discharge Planning Summary DCP REVIEW SUMMARY ANTICIPATED D/C DATE: EXPECTED LOS : CASE STATUS: DCP Initiated INITIAL REVIEW: 08/20/2020 INITIAL REVIEWER: Carol Nieto FINAL DISCHARGE DISPOSITION: : FINAL REVIEWER: FINAL REVIEW DATE: DCP Focus Questions & Answers DCP Screen QUESTION: ANSWER High Risk Factors: : Poor social support DCP Evaluation QUESTION: ANSWER Patient's ability to cope with chronic illness : d. No chronic illness Would patient like to participate in any Care Coordination programs (if applicable): : Not applicable Mental health screen: : No mental health history DCP Re-evaluation QUESTION: ANSWER Would patient like to participate in any Care Coordination programs (if applicable): : Not applicable PATIENT: MANFRED NICHOLS ENCOUNTER: [id number] MEDICAL RECORD#: [id number] ADMISSION DATE: 08/20/2020 DISCHARGE DATE: ATTENDING MD: JASVIR PENA : AGE: 50 MARITAL STATUS: S DC PLAN ID: [id number] FACILITY: [facility] PRINTED ON: 08/20/20 16:48 CT All edits/amendments must be made on the electronic document DICTATION DATE: 08/20/201647 ALL SOURCE INTELLIGENCE TECHNICIAN: CLAUDE 08/20/201647 RPT#: [id number] DC DATE: STATUS: ADM IN [facility] [address] [place] [address] END OF REPORT
--- NOTE | 2020-08-20 16:58 | MORECARE ---
CASE MANAGEMENT DISCHARGE SUMMARY PATIENT: MANFRED NICHOLS UNIT: [id number] ADM DATE: 08/20/20 AGE: 50 : 69 SEX: F ROOM/BED: D.E18 AUTHOR: RONNY GOODMAN PHYSICIAN: REFERRING PHYSICIAN: JASVIR DIOR MD DATE OF SERVICE: 08/20/20 Case Management Discharge Planning Summary DCP REVIEW SUMMARY ANTICIPATED D/C DATE: EXPECTED LOS : CASE STATUS: DCP Initiated INITIAL REVIEW: 08/20/2020 INITIAL REVIEWER: Carol Nieto FINAL DISCHARGE DISPOSITION: : FINAL REVIEWER: FINAL REVIEW DATE: DCP Focus Questions & Answers DCP Screen QUESTION: ANSWER High Risk Factors: : Poor social support DCP Evaluation QUESTION: ANSWER Patient's ability to cope with chronic illness : d. No chronic illness Would patient like to participate in any Care Coordination programs (if applicable): : Not applicable Mental health screen: : No mental health history DCP Re-evaluation QUESTION: ANSWER Patient and/or caregiver agree upon recommended discharge plan? : Yes Patient's current cognitive status: : Intermittently confused / memory changes Reassessment due to: : New discovery of admission to an acute inpatient facility within 30 days Functional screen assessment: : Unable to manage ADLs without immediate ongoing assistance Functional screen assessment: : Noticeable poor ADL management Patient gives permission to discuss discharge plans with: (name, relationship and number) : Miranda Springer DTR Equipment needed for post hospitalization: : Glucometer Functional screen comments: : Patient is homeless Patient with capacity for self-care or can be cared for in same environment as prior to hospitalization? : No Patient and/or Caregiver notified that they can request a re-evaluation of the discharge plan at any time. : Yes Physical environment modification needed / anticipated for discharge: : Yes Physical environment referral comments (if applicable): : She is homeless Planned post hospital services available for patient? : N/A Would patient like to participate in any Care Coordination programs (if applicable): : Not applicable PATIENT: MANFRED NICHOLS ENCOUNTER: [id number] MEDICAL RECORD#: [id number] ADMISSION DATE: 08/20/2020 DISCHARGE DATE: ATTENDING MD: JASVIR PENA : AGE: 50 MARITAL STATUS: S DC PLAN ID: [id number] FACILITY: [facility] PRINTED ON: 4/25/21 16:58 CT All edits/amendments must be made on the electronic document DICTATION DATE: 08/20/201657 LIFE ENRICHMENT MANAGER: CLAUDE 08/20/201657 RPT#: [id number] DC DATE: STATUS: ADM IN [facility] [address] [place] [address] END OF REPORT
--- NOTE | 2020-08-20 17:20 | MORECARE ---
CASE MANAGEMENT DISCHARGE SUMMARY PATIENT: MANFRED NICHOLS UNIT: [id number] ADM DATE: 08/20/20 AGE: 50 : 69 SEX: F ROOM/BED: D.E18 AUTHOR: RONNY GOODMAN PHYSICIAN: REFERRING PHYSICIAN: JASVIR DIOR MD DATE OF SERVICE: 08/20/20 Case Management Discharge Planning Summary COMMENTS ENTERED DATE: 08/20/20 16:55 CT COMMENT TYPE: Discharge Planning REVIEWER: Carol Nieto DC needs: Patient will need a list of homeless shelters, a glucometer, strips and lancets, assistance getting medications. CM met with patient to discuss discharge planning/needs. She is very vague in her questions, seems drowsy. She states she wants to go to [facility]. States at first that she has filled out an application and when I asked again, she said she had not filled out an application. I asked if her contact information for her daughter was correct and she said she was unsure of her daughter's phone number. She said when she discharged last time, she did not get her medicine filled because she didn't have the money. She states that she does get a monthly check but "the people I was with, keeps my money." I asked her if she could change her address to someone she trusted for her check and she said she can have it mailed to [facility]. I would not suggest that unless she is living there or someone is there that she trusts to mail it to. I am unsure because she seems drowsy and unable to participate in the assessment. CM will need to follow up with her tomorrow to see if she is more alert and assist with discharge planning. DCP REVIEW SUMMARY ANTICIPATED D/C DATE: EXPECTED LOS : CASE STATUS: DCP Initiated INITIAL REVIEW: 08/20/2020 INITIAL REVIEWER: Carol Nieto FINAL DISCHARGE DISPOSITION: : FINAL REVIEWER: FINAL REVIEW DATE: DCP Focus Questions & Answers DCP Screen QUESTION: ANSWER High Risk Factors: : Poor social support DCP Evaluation QUESTION: ANSWER Patient's ability to cope with chronic illness : d. No chronic illness Would patient like to participate in any Care Coordination programs (if applicable): : Not applicable Mental health screen: : No mental health history DCP Re-evaluation QUESTION: ANSWER Patient and/or caregiver agree upon recommended discharge plan? : Yes Patient's current cognitive status: : Intermittently confused / memory changes Reassessment due to: : New discovery of admission to an acute inpatient facility within 30 days Functional screen assessment: : Unable to manage ADLs without immediate ongoing assistance Functional screen assessment: : Noticeable poor ADL management Patient gives permission to discuss discharge plans with: (name, relationship and number) : Miranda Springer DTR Equipment needed for post hospitalization: : Glucometer Functional screen comments: : Patient is homeless Patient with capacity for self-care or can be cared for in same environment as prior to hospitalization? : No Patient and/or Caregiver notified that they can request a re-evaluation of the discharge plan at any time. : Yes Physical environment modification needed / anticipated for discharge: : Yes Physical environment referral comments (if applicable): : She is homeless Planned post hospital services available for patient? : N/A Would patient like to participate in any Care Coordination programs (if applicable): : Not applicable PATIENT: MANFRED NICHOLS ENCOUNTER: [id number] MEDICAL RECORD#: [id number] ADMISSION DATE: 08/20/2020 DISCHARGE DATE: ATTENDING MD: JASVIR PENA : AGE: 50 MARITAL STATUS: S DC PLAN ID: [id number] FACILITY: [facility] PRINTED ON: 08/20/20 17:20 CT All edits/amendments must be made on the electronic document DICTATION DATE: 08/20/201719 TERMINAL PRESS OPERATOR: CLAUDE 08/20/201719 RPT#: [id number] DC DATE: STATUS: ADM IN [facility] [address] [place] [address] END OF REPORT
[2020-08-20 19:20] VITALS: BP 152/84
--- NOTE | 2020-08-21 07:19 | NUR ---
DR. DIOR AT BEDSIDE.
[2020-08-21 09:00] VITALS: BP 161/106
--- NOTE | 2020-08-21 10:39 | NUR ---
PATIENT STATES SHE IS NOT SUICIDAL AND WANTS TO BE DISCHARGED. CONTACTED DR. DIOR VIA PHONE, HE ADVISED TO GET CASE MGT TO SEE PATIENT AND EVALUATE HER FOR POSSIBILITY OF DISCHARGE.
--- NOTE | 2020-08-21 11:44 | NUR ---
FSBS READS HIGH ON GLUCOMRETER, CMP AND SERUM KETONES ORDERED, WILL CONTACT DR. DIOR WITH RESULTS.
[2020-08-21 12:53] LABS: ALBUMIN 2.6 g/dL (3.4-5.0); ANION GAP 12.3 mmol/L (8-16); BILIRUBIN - TOTAL 0.5 mg/dL (0.2-1.3); CALCIUM 8.9 mg/dL (8.5-10.1); CARBON DIOXIDE 27.9 mmol/L (21.0-32.0); POTASSIUM - SERUM 4.2 mmol/L (3.5-5.1)
--- NOTE | 2020-08-21 12:58 | NUR ---
SERUM GLUCOSE 386, SERUM KETONES NEGATIVE.
--- NOTE | 2020-08-21 13:23 | NUR ---
OSKAR SOSAT AND DR. DIOR AT BEDSIDE FOR PATIENT EVAL.
[2020-08-21] MEDS ORDERED: NORVASC10 MG PO (13:37)
[2020-08-21] MEDS ORDERED: XANAX1 MG PO (13:37)
[2020-08-21] MEDS ORDERED: LISINOPRIL10 MG PO (13:37)
[2020-08-21] MEDS ORDERED: LANTUS INS100 UNITS/ SC (13:38)
[2020-08-21] MEDS ORDERED: METFORMIN HCL500 M1 PO (13:38)
[2020-08-21] MEDS ORDERED: HYDROCODON-ACE1 EAC7 PO (13:38)
--- NOTE | 2020-08-21 14:00 | NUR ---
CM met with patient to discuss discharge planning needs. Initially patient was hostel and told CM "I don't have the F^@#$*& time for this". CM re-entered the room with nurse, Martin. Martin explained to patient that CM was here to try to help her get her medicine. Patient now more agreeable to see CM. Patient told CM that she needed more slots on her Medicaid and she needs a glucometer. CM met with Dr. Swain regarding needs. Dr Swain and CM met with patient. Discussed need to increase Medicaid slots, need for Glucometer, Test Strips, Lancets, and syringes. Dr. Swain instructed CM to get patient an appointment with [facility] as soon as possible. CM called Medicaid and got slots increased from 3 to 6. CM called [facility] and arranged for pharmacy to bill CM department for supplies (Glucometer, test strips, lancets, and syringes). CM called [facility] to arrange follow up appointment. Soonest appointment was Friday08/28/20 at 14:[address] Andersen. CM instructed patient and nurse, Sita: that Medicaid slots were increased to 6; Diabetic supplies were called into [facility] and hospital will pay for those supplies; appointment scheduled with [facility] at [address] [facility] with Dr. Andersen on Friday08/28/20 at 14:20. CM handed printed map with location of [facility] to give patient with DC instructions. All patient's Rx's were sent to [facility] on [facility] per her request.
--- NOTE | 2020-08-21 16:05 | NUR ---
ELA INFORMED ME THAT MEDICAL SUPPLIES, PRESCRIPTIONS, AND APPT WERE ARRANGED FOR PT. ON D/C I EXPLAINED TO PT ABOUT HER DIABETIC SUPPLIES, PRESCRIPTIONS, APPT. PT SIGNED AND VERBALIZED EVERYTHING BACK TO ME.
[2020-08-21 16:09] VITALS: BP 147/86
--- NOTE | 2020-08-21 16:36 | MORECARE ---
CASE MANAGEMENT DISCHARGE SUMMARY PATIENT: MANFRED LIMON UNIT: [id number] ADM DATE: 08/20/20 AGE: 50 : 68 SEX: F ROOM/BED: D.E18 AUTHOR: RONNY GOODMAN PHYSICIAN: REFERRING PHYSICIAN: JASVIR DIOR MD DATE OF SERVICE: 08/21/20 Case Management Discharge Planning Summary COMMENTS ENTERED DATE: 08/20/20 16:55 CT COMMENT TYPE: Discharge Planning REVIEWER: Carol Nieto DC needs: Patient will need a list of homeless shelters, a glucometer, strips and lancets, assistance getting medications. CM met with patient to discuss discharge planning/needs. She is very vague in her questions, seems drowsy. She states she wants to go to [facility]. States at first that she has filled out an application and when I asked again, she said she had not filled out an application. I asked if her contact information for her daughter was correct and she said she was unsure of her daughter's phone number. She said when she discharged last time, she did not get her medicine filled because she didn't have the money. She states that she does get a monthly check but "the people I was with, keeps my money." I asked her if she could change her address to someone she trusted for her check and she said she can have it mailed to [facility]. I would not suggest that unless she is living there or someone is there that she trusts to mail it to. I am unsure because she seems drowsy and unable to participate in the assessment. CM will need to follow up with her tomorrow to see if she is more alert and assist with discharge planning. DCP REVIEW SUMMARY ANTICIPATED D/C DATE: EXPECTED LOS : CASE STATUS: DCP Initiated INITIAL REVIEW: 08/20/2020 INITIAL REVIEWER: Carol Nieto FINAL DISCHARGE DISPOSITION: : FINAL REVIEWER: FINAL REVIEW DATE: DCP Focus Questions & Answers DCP Screen QUESTION: ANSWER High Risk Factors: : Poor social support DCP Evaluation QUESTION: ANSWER Patient's ability to cope with chronic illness : d. No chronic illness Would patient like to participate in any Care Coordination programs (if applicable): : Not applicable Mental health screen: : No mental health history DCP Re-evaluation QUESTION: ANSWER Patient's current cognitive status: : Intermittently confused / memory changes Reassessment due to: : New discovery of admission to an acute inpatient facility within 30 days Patient and/or caregiver agree upon recommended discharge plan? : Yes Functional screen assessment: : Noticeable poor ADL management Functional screen assessment: : Unable to manage ADLs without immediate ongoing assistance Patient gives permission to discuss discharge plans with: (name, relationship and number) : Miranda Limon - DTR Functional screen comments: : Patient is homeless Equipment needed for post hospitalization: : Glucometer Patient with capacity for self-care or can be cared for in same environment as prior to hospitalization? : No Patient and/or Caregiver notified that they can request a re-evaluation of the discharge plan at any time. : Yes Physical environment modification needed / anticipated for discharge: : Yes Physical environment referral comments (if applicable): : She is homeless Planned post hospital services available for patient? : N/A Would patient like to participate in any Care Coordination programs (if applicable): : Not applicable PATIENT: MANFRED LIMON ENCOUNTER: [id number] MEDICAL RECORD#: [id number] ADMISSION DATE: 08/20/2020 DISCHARGE DATE: 08/21/2020 ATTENDING MD: JASVIR PENA : AGE: 50 MARITAL STATUS: S DC PLAN ID: [id number] FACILITY: [facility] PRINTED ON: 08/21/20 16:36 CT All edits/amendments must be made on the electronic document DICTATION DATE: 08/21/201635 SURGICAL GARMENT ASSEMBLY SUPERVISOR: CLAUDE 08/21/20 163 RPT#: [id number] DC DATE:08/21/20 STATUS: DIS IN [facility] [address] [place] [address] END OF REPORT
[2020-08-22 12:12] LABS: HEPATITIS C ANTIBODY >11.0 S/CO RAT (0.0-0.9)
== END 2020-08-21 16:20 | disposition home or self-care (01) | DRG 638 ==
LOC: D.ER 10:52 → OBSVTIME 13:58 → D.EDHOLD 13:58
PROVIDERS: Family Medicine; ADMIT Family Medicine; ATTEND Family Medicine
DX: E11.65 Type 2 diabetes mellitus with hyperglycemia (principal); R45.851 Suicidal ideations; I10 Essential (primary) hypertension; F15.10 Other stimulant abuse, uncomplicated; F41.1 Generalized anxiety disorder; E87.6 Hypokalemia; Z91.14 Patient's other noncompliance with medication regimen; F17.210 Nicotine dependence, cigarettes, uncomplicated; J44.9 Chronic obstructive pulmonary disease, unspecified; E66.01 Morbid (severe) obesity due to excess calories; Z79.4 Long term (current) use of insulin

== ENCOUNTER 2020-10-11 22:10 | Emergency (ER) | payer MEDICAID ==
[~2020-10-11] VITALS: Ht 160 cm; Wt 113.6 kg
[~2020-10-11 22:10] MED LIST changes: +HYDROCODON-ACE1 EAC7 PO; +LISINOPRIL10 MG PO; +LISINOPRIL20 MG PO; +METFORMIN HCL500 M1 PO; +XANAX1 MG PO
[2020-10-11 22:18] VITALS: BP 194/137; Ht 160 cm; Wt 113.6 kg
[2020-10-11] MEDS ORDERED: BAYER CHEWABLE81 MG PO (22:26)
[2020-10-11 22:55] LABS: BASOPHILS 1.2 % (0-2); EOSINOPHILS 1.2 % (0-7); HEMATOCRIT 43.7 % (36.0-48.0); HEMOGLOBIN 14.6 g/dL (12-16); MCH 30.3 pg (26.0-34.0); MCHC 33.4 g/dL (31.0-37.0); MEAN PLATELET VOLUME 9.5 fL (7.4-10.4); MONOCYTES 5.9 % (2-11); NEUTROPHILS 55.7 % (40-80); RDW 13.7 % (11.5-14.5); WBC 8.8 10x3/uL (4.8-10.8)
[2020-10-11 22:56] LABS: PLATELET COUNT 254 10x3/uL (130-400)
[2020-10-11 22:58] LABS: BACTERIA FEW HPF (<MOD); BILIRUBIN NEGATIVE (NEGATIVE); KETONE NEGATIVE mg/dL (< 1+); NITRITE NEGATIVE (NEGATIVE); SQUAMOUS EPITHELIAL 7 HPF (0-4); UROBILINOGEN 2 mg/dL (< 2); WHITE CELLS - URINE 17 HPF (0-4)
[2020-10-11 23:03] LABS: ANION GAP 13.1 mmol/L (8-16); CALCIUM 8.6 mg/dL (8.5-10.1); CARBON DIOXIDE 27.4 mmol/L (21.0-32.0); CREATININE - SERUM 0.9 mg/dL (0.6-1.3); POTASSIUM - SERUM 3.5 mmol/L (3.5-5.1)
[2020-10-11 23:09] LABS: UDS - AMPHET POSITIVE QUAL (NEGATIVE); UDS - BARB NEGATIVE QUAL (NEGATIVE); UDS - BENZO NEGATIVE QUAL (NEGATIVE); UDS - COCAINE NEGATIVE QUAL (NEGATIVE); UDS - OPIATE NEGATIVE QUAL (NEGATIVE); UDS - PCP NEGATIVE QUAL (NEGATIVE); UDS - THC NEGATIVE QUAL (NEGATIVE)
[2020-10-11 23:15] LABS: ALBUMIN 2.9 g/dL (3.4-5.0); BILIRUBIN - TOTAL 0.58 mg/dL (0.2-1.3); MAGNESIUM - SERUM 1.7 mg/dL (1.8-2.4); PROTEIN - SERUM 7.9 g/dL (6.4-8.2)
--- NOTE | 2020-10-11 23:32 | NUR ---
ATTEMPTED TO PERFORM SUICIDE RISK ASSESSMENT. PT WAS MORE INTERESTED IN GETTING A MEAL TRAY. SHE ASKED THE INTERPRETER TO TELL THE NURSE TO GET HER A MEAL TRAY AND THEN ASKED ME ABOUT A MEAL TRAY. PT REPORTS TO NURSE "I DON'T HAVE A PLACE TO STAY AND MY MONEY HAS BEEN CUT OUT. I JUST SLEEP ALL THE TIME. I REALLY DON'T WANT TO DO IT. I'M JUST TIRED. I DON'T WANT TO ANSWER ANYMORE QUESTONS." PATIENT REFUSES TO COOPERATE WITH ASSESSMENT PROCESS. SPOKE WITH DR HAIR AND JANAE JEAN REGARDING PATIENT'S DEMEANOR AND REFUSAL TO PARTICIPATE IN ASSESSMENT. PATIENT HAD REPORTED TO ED STAFF THAT SHE CURRENTLY DOES NOT HAVE A PLAN OR INTENT.
== END 2020-10-12 06:56 | disposition home or self-care (01) ==
LOC: D.ER 22:10
PROVIDERS: Family Medicine
DX: M54.9 Dorsalgia, unspecified (principal); I10 Essential (primary) hypertension; E11.9 Type 2 diabetes mellitus without complications; N39.0 Urinary tract infection, site not specified; R79.89 Other specified abnormal findings of blood chemistry; K21.9 Gastro-esophageal reflux disease without esophagitis; Z72.0 Tobacco use; Z79.84 Long term (current) use of oral hypoglycemic drugs; R51.9 Headache, unspecified; R45.851 Suicidal ideations